=== PATIENT | male | born 1970 | race Hispanic/Latino ===

== ENCOUNTER 2019-08-09 | Emergency (ER) | payer OTHER ==
--- NOTE | 2019-08-09 20:32 | ER ---
Nurse's Notes [facility] Name: Treva Miguel Age: 48 yrs Sex: Male : 1970 Arrival Date: 08/09/2019 Time: 20:07 Bed 6 Private MD: Case Lanier T Diagnosis: Acute upper respiratory infection, unspecified Presentation: 08/08 20:10 Chief complaint: Patient states: having runny nose, little cough started 4 days ago rr5 (Monday). denies fever, denies SOB. 20:10 Coronavirus screen: The patient has NOT traveled to a country currently being monitored rr5 by the [facility] within the last 14 days. Proceed with normal triage procedures. Ebola Screen: Patient negative for fever greater than or equal to 101.5 degrees Fahrenheit, and additional compatible Ebola Virus Disease symptoms Patient denies exposure to infectious person. Patient denies travel to an Ebola-affected area in the 21 days before illness onset. Initial Sepsis Screen: Does the patient meet any 2 criteria? No. Patient's initial sepsis screen is negative. Does the patient have a suspected source of infection? No. Patient's initial sepsis screen is negative. Risk Assessment: Do you want to hurt yourself or someone else? Patient reports no desire to harm self or others. Onset of symptoms was August 05, 2019. Care prior to arrival: Medication(s) given: nyt quil. 20:10 Method Of Arrival: Ambulatory rr5 20:10 Acuity: JAYSON 4 rr5 Historical: - Allergies: 20:21 Codeine; rr5 - Home Meds: 20:21 mirabegron oral oral [Active]; tamsulosin oral oral [Active]; rr5 - PMHx: 20:21 Asthma; urinary frequency; rr5 - Immunization history:: Adult Immunizations unknown. - Social history:: Smoking status: Patient reports the use of cigarette tobacco products, cigars, Patient uses street drugs, marijuana. Screenin:39 Abuse screen: Denies threats or abuse. Nutritional screening: No deficits noted. ea Tuberculosis screening: No symptoms or risk factors identified. Fall Risk None identified. Assessment: 20:20 General: Appears in no apparent distress. Behavior is calm, cooperative, appropriate ea for age. Pain: Denies pain. Neuro: Level of Consciousness is awake, alert, obeys commands, Oriented to person, place, time, situation. Cardiovascular: Patient's skin is warm and dry. Respiratory: Airway is patent Respiratory effort is even, unlabored, Respiratory pattern is regular, symmetrical. Derm: Skin is pink, warm \T\ dry. 20:40 Reassessment: Patient and/or family updated on plan of care and expected duration. Pain ea level reassessed. Patient is alert, oriented x 3, equal unlabored respirations, skin warm/dry/pink. Discharge instruction given to patient, verbalized the understanding of instruction. Pt left ED ambulatory accompanied by family. Pt tolerating well. Vital Signs: 20:10 BP 133 / 79; Pulse 84; Resp 19; Temp 97.8; Pulse Ox 100% ; Weight 81.65 kg; Height 5 rr5 ft. 7 in. (170.18 cm); Pain 0/10; 20:10 Body Mass Index 28.19 (81.65 kg, 170.18 cm) rr5 ED Course: 20:07 Patient arrived in ED. es 20:08 Case Lanier MD is Private Physician. es 20:10 Arm band placed on right wrist. rr5 20:19 Triage completed. rr5 20:20 Patient has correct armband on for positive identification. Bed in low position. Call ea light in reach. 20:27 Amol Malik MD is Attending Physician. [facility] 20:29 Yovany Rodriguez, RN is Primary Nurse. 4 20:32 Case Lanier MD is Referral Physician. [facility] 20:42 No provider procedures requiring assistance completed. IV discontinued, intact, ea bleeding controlled, No redness/swelling at site. Pressure dressing applied. Administered Medications: No medications were administered Outcome: 20:32 Discharge ordered by . gautam 20:41 Discharged to home ambulatory. ea 20:41 Condition: stable 20:41 Discharge instructions given to patient, Instructed on discharge instructions, follow up and referral plans. medication usage, Demonstrated understanding of instructions, follow-up care, medications, Prescriptions given X 1. 20:42 Patient left the ED. ea Signatures: Amol Malik MD MD cha Salyer, Edna es Bryson, James, RN RN [id number] Luz Maria Pradhan RN RN ea Jass Cervantes RN RN rr5 Corrections: (The following items were deleted from the chart) 20:22 20:21 Social history: Smoking status: Patient reports the use of cigarette tobacco rr5 products, cigars, Patient/guardian denies using alcohol, street drugs, rr5
--- NOTE | 2019-08-09 20:33 | EDPHYS ---
Physician Documentation [facility] Name: Treva Miguel Age: 48 yrs Sex: Male : 1970 Arrival Date: 08/09/2019 Time: 20:07 Bed 6 Private MD: Case Lanier T ED Physician Amol Malik HPI: 08/08 20:30 This 48 yrs old Male presents to ER via Ambulatory with complaints of Runny gautam Nose. 20:30 The patient or guardian reports cough, described as mild. Onset: The symptoms/episode gautam began/occurred 2 day(s) ago. Severity of symptoms: At their worst the symptoms were mild, in the emergency department the symptoms are unchanged. Modifying factors: The symptoms are alleviated by nothing, the symptoms are aggravated by nothing. Associated signs and symptoms: The patient has no apparent associated signs or symptoms. The patient has not experienced similar symptoms in the past. Historical: - Allergies: 20:21 Codeine; rr5 - Home Meds: 20:21 mirabegron oral oral [Active]; tamsulosin oral oral [Active]; rr5 - PMHx: 20:21 Asthma; urinary frequency; rr5 - Immunization history:: Adult Immunizations unknown. - Social history:: Smoking status: Patient reports the use of cigarette tobacco products, cigars, Patient uses street drugs, marijuana. ROS: 20:30 Constitutional: Negative for fever, chills, and weight loss, Eyes: Negative for injury, gautam pain, redness, and discharge, Neck: Negative for injury, pain, and swelling, Cardiovascular: Negative for chest pain, palpitations, and edema, Respiratory: Negative for shortness of breath, cough, wheezing, and pleuritic chest pain, Abdomen/GI: Negative for abdominal pain, nausea, vomiting, diarrhea, and constipation, Back: Negative for injury and pain, : Negative for injury, bleeding, discharge, and swelling, MS/Extremity: Negative for injury and deformity, Skin: Negative for injury, rash, and discoloration, Neuro: Negative for headache, weakness, numbness, tingling, and seizure. 20:30 ENT: Positive for pulling at ears. Exam: 20:30 Constitutional: This is a well developed, well nourished patient who is awake, alert, gautam and in no acute distress. Head/Face: Normocephalic, atraumatic. Eyes: Pupils equal round and reactive to light, extra-ocular motions intact. Lids and lashes normal. Conjunctiva and sclera are non-icteric and not injected. Cornea within normal limits. Periorbital areas with no swelling, redness, or edema. ENT: Nares patent. No nasal discharge, no septal abnormalities noted. Tympanic membranes are normal and external auditory canals are clear. Oropharynx with no redness, swelling, or masses, exudates, or evidence of obstruction, uvula midline. Mucous membranes moist. Neck: Trachea midline, no thyromegaly or masses palpated, and no cervical lymphadenopathy. Supple, full range of motion without nuchal rigidity, or vertebral point tenderness. No Meningismus. Chest/axilla: Normal chest wall appearance and motion. Nontender with no deformity. No lesions are appreciated. Cardiovascular: Regular rate and rhythm with a normal S1 and S2. No gallops, murmurs, or rubs. Normal PMI, no JVD. No pulse deficits. Respiratory: Lungs have equal breath sounds bilaterally, clear to auscultation and percussion. No rales, rhonchi or wheezes noted. No increased work of breathing, no retractions or nasal flaring. Abdomen/GI: Soft, non-tender, with normal bowel sounds. No distension or tympany. No guarding or rebound. No evidence of tenderness throughout. Back: No spinal tenderness. No costovertebral tenderness. Full range of motion. Male : Normal genitalia with no discharge or lesions. Skin: Warm, dry with normal turgor. Normal color with no rashes, no lesions, and no evidence of cellulitis. MS/ Extremity: Pulses equal, no cyanosis. Neurovascular intact. Full, normal range of motion. Neuro: Awake and alert, GCS 15, oriented to person, place, time, and situation. Cranial nerves II-XII grossly intact. Motor strength 5/5 in all extremities. Sensory grossly intact. Cerebellar exam normal. Normal gait. Psych: Awake, alert, with orientation to person, place and time. Behavior, mood, and affect are within normal limits. Vital Signs: 20:10 BP 133 / 79; Pulse 84; Resp 19; Temp 97.8; Pulse Ox 100% ; Weight 81.65 kg; Height 5 rr5 ft. 7 in. (170.18 cm); Pain 0/10; 20:10 Body Mass Index 28.19 (81.65 kg, 170.18 cm) rr5 MDM: 20:28 Patient medically screened. gautam Administered Medications: No medications were administered Disposition: 08/09/19 20:32 Discharged to Home. Impression: Acute upper respiratory infection, unspecified. - Condition is Stable. - Discharge Instructions: Upper Respiratory Infection, Adult, Cool Mist Vaporizer, Cough, Adult. - Prescriptions for Zithromax Z- Antonio 250 mg Oral Tablet - take 1 tablet by ORAL route as directed for 5 days Day 1 - take two (2) tablets one time. Day 2, 3, 4 , 5 take one (1) tablet once daily.; 6 tablet. - Medication Reconciliation Form, Thank You Letter, Antibiotic Education, Prescription Opioid Use, Work release form form. - Follow up: Case Lanier MD; When: 2 - 3 days; Reason: Recheck today's complaints, Continuance of care, Re-evaluation by your physician. - Problem is new. - Symptoms have improved. Signatures: Amol Malik MD MD cha Antunez, Elena, RN RN Jass Ridley, RN RN rr5 Corrections: (The following items were deleted from the chart) 20:22 20:21 Social history: Smoking status: Patient reports the use of cigarette tobacco rr5 products, cigars, Patient/guardian denies using alcohol, street drugs, rr5 20:42 20:32 08/09/2019 20:32 Discharged to Home. Impression: Acute upper respiratory ea infection, unspecified. Condition is Stable. Forms are Medication Reconciliation Form, Thank You Letter, Antibiotic Education, Prescription Opioid Use. Follow up: Case Lanier; When: 2 - 3 days; Reason: Recheck today's complaints, Continuance of care, Re-evaluation by your physician. Problem is new. Symptoms have improved. gautam
== END 2019-08-09 20:42 | disposition home or self-care (01) ==
CPT/HCPCS: 99282

== ENCOUNTER → 2023-07-10 | Emergency (ER) | payer OTHER ==
[~2023-07-10] MED LIST: FIDAXOMICIN 200 MG TABLET PO ONE; KETOROLAC 30 MG/ML INJ ONE; NA CHLORIDE 0.9% 1,000 ML ONE
[2023-07-10 12:37] LABS: Specific Gravity < 1.005 (1.005-1.030); Urine Bacteria <20 /HPF (<20); Urine Bilirubin NEGATIVE (Negative); Urine Blood Negative (Negative); Urine Clarity Clear (Clear); Urine Color Colorless (Yellow); Urine Glucose NEGATIVE (Negative); Urine Protein NEGATIVE (Negative); Urine RBC <5 /HPF (None Seen); Urine Urobilinogen Normal (Normal); Urine pH 6.5 (5.0-7.0)
[2023-07-10 12:40] LABS: Absolute Lymphocytes (CBC) 2.1 K/uL (0.7-4.9); Hematocrit 40.7 % (39.6-49.0); Lymphocytes % 17.6 % (15.3-44.8); MCV 87.4 fL (80-100); MPV 8.5 fL (7.6-11.3); Platelets 341 thou/uL (152-406); RBC Red Blood Cell Count 4.65 M/uL (4.33-5.43)
[2023-07-10 12:41] LABS: Protime INR 1.22
[2023-07-10 12:55] LABS: Albumin 3.3 g/dL (3.4-5.0); Bilirubin Direct 0.1 mg/dL (0-0.2); Bilirubin Indirect, Calculated 0.3 mg/dL (0.2-0.8); Bilirubin Total 0.4 mg/dL (0.2-1.0); Magnesium 2.2 mg/dL (1.6-2.4); Potassium 3.4 mEq/L (3.5-5.1); Protein, Total 7.6 g/dL (6.4-8.2); Troponin High Sensitivity 5.5 pg/mL (<58.9)
[2023-07-10 13:32] LABS: C.diff Antigen/Toxin Ag pos : Tox pos (NEG : NEG)
--- NOTE | 2023-07-10 13:57 | RAD REPORT ---
EXAM DESCRIPTION: Kaity Single View07/10/2023 1:41 pm CLINICAL HISTORY: CHEST PAIN COMPARISON: Chest Pa And Lat (2 Views) dated 09/01/2015 TECHNIQUE: Portable AP view of the chest. FINDINGS: The lungs are clear. No pneumothorax or effusion. The cardiomediastinal contours are unre markable. IMPRESSION: No acute cardiopulmonary process.
[2023-07-10 14:56] LABS: SARS-CoV-2 Antigen Rapid Res Negative (Negative)
--- NOTE | 2023-07-10 15:23 | RAD REPORT ---
EXAM DESCRIPTION: CT - Abdomen Pelvis W Contrast - 07/10/2023 1:58 pm CLINICAL HISTORY: diarrhea COMPARISON: No comparisons TECHNIQUE: Thin cut axial CT imaging of the abdomen and pelvis was performed following intravenous a dministration of 100 mL Isovue 300. Multiplanar reformats were generated and reviewed. All CT scans are performed using dose optimization technique as appropriate and may include automated exposure control or mA/KV adjustment according to patient size. FINDINGS: No suspicious findings in the lung bases. The liver, spleen, adrenal glands, and pancreas show no suspicious findings. Gallbladder and biliary tree are also without suspicious finding. Symmetric renal function is seen with no hydronephrosis or suspicious renal mass. Subcentimeter bilat eral cortical fluid density lesions, not well characterized, but suggestive of small cysts. No dilated bowel loops. Long segment bowel wall thickening involving the distal descending, sigmoid c olon, and rectum, and to lesser extent the proximal ascending colon. Appendix is unremarkable. No flora e air, free fluid, abnormal fluid collections, or inflammatory stranding. No hernia, mass or bulky ly mphadenopathy. The urinary bladder is without significant finding. No suspicious bony findings. IMPRESSION: Segmental wall thickening along the proximal and distal colon as above, suggestive of in fectious or inflammatory colitis.
--- NOTE | 2023-07-10 15:46 | ER ---
Nurse's Notes [facility] Name: Treva Miguel Age: 52 yrs Sex: Male : 1970 Arrival Date: 07/10/2023 Time: 11:55 Bed 15 Private MD: Diagnosis: Enterocolitis due to Clostridium difficile;Diarrhea, unspecified Presentation: 07/10 12:10 Chief complaint: Patient states: Diarrhea for 1 week. Coronavirus screen: Client denies ll1 travel out of the [place] in the last 14 days. At this time, the client does not indicate any symptoms associated with coronavirus-19. Ebola Screen: Patient denies travel to an Ebola-affected area in the 21 days before illness onset. Initial Sepsis Screen: Does the patient meet any 2 criteria? No. Patient's initial sepsis screen is negative. Does the patient have a suspected source of infection? Yes: Acute abdominal pain. Risk Assessment: Do you want to hurt yourself or someone else? Patient reports no desire to harm self or others. Onset of symptoms was July 04, 2023. 12:10 Method Of Arrival: Ambulatory ll1 12:10 Acuity: JAYSON 2 ll1 Historical: - Allergies: 12:11 Codeine; ll1 - PMHx: 12:11 Asthma; Urinary Frequency; ll1 - Immunization history:: Adult Immunizations up to date. - Social history:: Smoking status: Patient/guardian denies using tobacco, Stopped _ months ago .5. Screenin:47 [facility] ED Fall Risk Assessment (Adult) History of falling in the last 3 months, me1 including since admission No falls in past 3 months (0 pts) Confusion or Disorientation No (0 pts) Intoxicated or Sedated No (0 pts) Impaired Gait No (0 pts) Mobility Assist Device Used No (0 pt) Altered Elimination No (0 pt) Score/Fall Risk Level 0 - 2 = Low Risk Maintained a safe environment, Provided non-skid footwear, Hourly rounding (assess needs \T\ fall precautionary measures) done. Abuse screen: Denies threats or abuse. Nutritional screening: No deficits noted. Tuberculosis screening: No symptoms or risk factors identified. Assessment: 12:47 General: Appears ill, well groomed, well developed, well nourished, Behavior is calm, me1 cooperative, appropriate for age, Reports feeling ill for > 3 days, dfiarrhea x 1 week. c/o weakness, dizziness at times. Denies n/v. States appetite is decreasing the past couple of days. Pain: Denies pain. Neuro: Level of Consciousness is awake, alert, obeys commands, Oriented to person, place, time, situation, Appropriate for age. Cardiovascular: Capillary refill < 3 seconds Patient's skin is warm and dry. Respiratory: Airway is patent Respiratory effort is even, unlabored, Respiratory pattern is regular, symmetrical. GI: Abdomen is non-distended, Reports diarrhea, since one week ago. Patient currently denies nausea, vomiting. Vital Signs: 12:10 BP 126 / 101; Pulse 118; Resp 18; Temp 98.4; Pulse Ox 98% on R/A; Weight 75.3 kg; ll1 Height 5 ft. 7 in. ; Pain 3/10; 12:33 BP 122 / 77; Pulse 88; Resp 16; Pulse Ox 100% on R/A; me1 13:30 BP 101 / 88; Pulse 79; Resp 19; Pulse Ox 100% on R/A; me1 14:00 BP 131 / 94; Pulse 77; Resp 22; Pulse Ox 100% on R/A; me1 15:14 BP 139 / 90; Pulse 74; Resp 16; Pulse Ox 100% on R/A; me1 16:04 BP 151 / 99; Pulse 69; Resp 16; Pulse Ox 100% on R/A; me1 16:37 BP 137 / 90; Pulse 67; Resp 16; Pulse Ox 100% on R/A; me1 12:10 Body Mass Index 26.00 (75.30 kg, 170.18 cm) ll1 12:10 Pain Scale: Adult ll1 ED Course: 11:57 Patient arrived in ED. rg4 12:00 Amol Lange PA is PHCP. cp 12:01 Amol Malik MD is Attending Physician. cp 12:11 Triage completed. ll1 12:13 Arm band placed on. ll1 12:15 Jessika Ambrose, CASSANDRA is Primary Nurse. me1 12:18 Patient placed in an exam room, on a stretcher. ll1 12:32 Inserted saline lock: 20 gauge in right antecubital area, using aseptic technique. me1 12:33 Basic Metabolic Panel Sent. me1 12:33 CBC with Diff Sent. me1 12:33 LFT's Sent. me1 12:33 Magnesium Sent. me1 12:33 NT PRO-BNP Sent. me1 12:33 PT-INR Sent. me1 12:33 Troponin HS Sent. me1 12:47 Patient has correct armband on for positive identification. Bed in low position. Call me1 light in reach. Side rails up X2. Provided Education on: POC. Verbalized understanding. . 12:47 No provider procedures requiring assistance completed. me1 13:03 Ova And Parasites Sent. me1 13:03 Rotavirus Antigen Sent. me1 13:03 Stool Culture Sent. me1 13:32 Notified Nurse Practitioner and/or Physician [place] of a critical lab result(s), C ll1 diff + Notified primary nurse of C Diff +. 13:43 XRAY Chest (1 view) In Process Unspecified. EDMS 13:59 CT Abd/Pelvis - IV Contrast Only In Process Unspecified. EDMS 14:36 SARS RAPID Sent. me1 16:38 IV discontinued, intact, bleeding controlled, No redness/swelling at site. Pressure me1 dressing applied. Administered Medications: 12:33 Drug: NS 0.9% IV 1000 ml IV at 1 bolus Per protocol; 1000 mL bolus Route: IV; Rate: 1 me1 bolus; Site: right antecubital; 13:53 Follow up: IV Status: Completed infusion me1 14:36 Drug: Ketorolac IVP 15 mg IVP once Route: IVP; Site: right antecubital; me1 15:27 Follow up: Response: No adverse reaction; Pain is decreased me1 15:31 Drug: NS 0.9% IV 1000 ml IV at 1 bolus Per protocol; 1000 mL bolus Route: IV; Rate: 1 me1 bolus; Site: right antecubital; 16:39 Follow up: IV Status: Completed infusion me1 15:50 Drug: fidaxomicin 200 mg PO once Route: PO; me1 16:03 Follow up: Response: No adverse reaction me1 Medication: 12:47 VIS not applicable for this client. me1 Outcome: 15:45 Discharge ordered by . cp 16:38 Discharged to home ambulatory, with family, me1 16:38 Condition: stable 16:38 Discharge instructions given to patient, Instructed on discharge instructions, follow up and referral plans. medication usage, Demonstrated understanding of instructions, follow-up care, medications, Prescriptions given X 2, 16:40 Patient left the ED. me1 Signatures: Dispatcher [employer] EDAmol Raza PA PA cp Garcia, Rubi rg4 Ruba Diallo, RN RN ll1 Jessika Ambrose RN RN me1 Corrections: (The following items were deleted from the chart) 12:12 12:10 BP 126 / 101; Pulse 131bpm; Resp 18bpm; Pulse Ox 98% RA; Pain 07/29, Adult; ll1 ll1 12:13 12:10 Acuity: JAYSON 3 ll1 ll1
--- NOTE | 2023-07-10 15:46 | EDPHYS ---
Physician Documentation [facility] Name: Treva Miguel Age: 52 yrs Sex: Male : 1970 Arrival Date: 07/10/2023 Time: 11:55 Bed 15 Private MD: ED Physician Amol Malik HPI: 07/10 12:20 This 52 yrs old Male presents to ER via Ambulatory with complaints of Diarrhea.cp 12:20 The patient presents to the emergency department with diarrhea, that is continuous. cp 12:20 Onset: The symptoms/episode began/occurred 1 week(s) ago. cp 12:20 Possible causes: antibiotics, Cipro and Metronidazole taken about 1 month ago. cp Associated signs and symptoms: Pertinent negatives: constipation, fever, GI bleeding, vomiting. 12:20 Severity of symptoms: in the emergency department the symptoms are unchanged despite cp home interventions. Historical: - Allergies: 12:11 Codeine; ll1 - PMHx: 12:11 Asthma; Urinary Frequency; ll1 - Immunization history:: Adult Immunizations up to date. - Social history:: Smoking status: Patient/guardian denies using tobacco, Stopped _ months ago .5. ROS: 12:25 Constitutional: Negative for body aches, chills, fever, poor PO intake, cp 12:25 Eyes: Negative for injury, pain, redness, and discharge, cp 12:25 ENT: Negative for drainage from ear(s), ear pain, sore throat, difficulty swallowing, difficulty handling secretions, 12:25 Cardiovascular: Negative for chest pain, edema, palpitations, 12:25 Respiratory: Negative for cough, shortness of breath, wheezing, 12:25 Abdomen/GI: Positive for abdominal pain, diarrhea, Negative for vomiting, constipation, black/tarry stool, rectal bleeding, 12:25 Back: Negative for pain at rest, pain with movement, 12:25 : Negative for urinary symptoms, testicular pain 12:25 Neuro: Negative for altered mental status, dizziness, headache, syncope, weakness, 12:25 All other systems are negative, Exam: 12:30 Head/Face: Normocephalic, atraumatic. cp 12:30 Constitutional: The patient appears in no acute distress, alert, awake, non-diaphoretic, non-toxic, well developed, well nourished, 12:30 Eyes: Periorbital structures: appear normal, Conjunctiva: normal, no exudate, no injection, Sclera: no appreciated abnormality, Lids and lashes: appear normal, bilaterally, 12:30 ENT: External ear(s): are unremarkable, Nose: is normal, Mouth: Lips: moist, Oral mucosa: pink and intact, moist, Posterior pharynx: Airway: no evidence of obstruction, patent, 12:30 Chest/axilla: Inspection: normal, 12:30 Cardiovascular: Rate: tachycardic, Rhythm: regular, Edema: is not appreciated, JVD: is not appreciated, 12:30 Respiratory: the patient does not display signs of respiratory distress, Respirations: normal, no use of accessory muscles, no retractions, labored breathing, is not present, Breath sounds: are clear throughout, no decreased breath sounds, no stridor, no wheezing, 12:30 Abdomen/GI: Inspection: abdomen appears normal, Bowel sounds: active, all quadrants, Palpation: soft, in all quadrants, mild abdominal tenderness, in all quadrants, rebound tenderness, is not appreciated, involuntary guarding, is not appreciated, 12:30 Back: pain, is absent, ROM is normal, 18:22 ECG was reviewed by the Attending Physician. cp Vital Signs: 12:10 BP 126 / 101; Pulse 118; Resp 18; Temp 98.4; Pulse Ox 98% on R/A; Weight 75.3 kg; ll1 Height 5 ft. 7 in. ; Pain 3/10; 12:33 BP 122 / 77; Pulse 88; Resp 16; Pulse Ox 100% on R/A; me1 13:30 BP 101 / 88; Pulse 79; Resp 19; Pulse Ox 100% on R/A; me1 14:00 BP 131 / 94; Pulse 77; Resp 22; Pulse Ox 100% on R/A; me1 15:14 BP 139 / 90; Pulse 74; Resp 16; Pulse Ox 100% on R/A; me1 16:04 BP 151 / 99; Pulse 69; Resp 16; Pulse Ox 100% on R/A; me1 16:37 BP 137 / 90; Pulse 67; Resp 16; Pulse Ox 100% on R/A; me1 12:10 Body Mass Index 26.00 (75.30 kg, 170.18 cm) [facility] [place] 12:10 Pain Scale: Adult ll1 MDM: 12:09 Patient medically screened. cp 14:00 Differential diagnosis: gastritis, cholecystitis, pancreatitis, diverticulitis, viral cp gastroenteritis, gastroenteritis, colitis. 15:45 Data reviewed: vital signs, nurses notes, lab test result(s), radiologic studies, CT cp scan. 15:45 I considered the following discharge prescriptions or medication management in the emergency department Medications were administered in the Emergency Department. See MAR. Counseling: I had a detailed discussion with the patient and/or guardian regarding the historical points, exam findings, and any diagnostic results supporting the discharge/admit diagnosis, lab results, radiology results, the need for outpatient follow up, a family practitioner, to return to the emergency department if symptoms worsen or persist or if there are any questions or concerns that arise at home. Response to treatment: the patient's symptoms have markedly improved after treatment, and as a result, I will discharge patient. Special discussion: Based on the patient's Hx, exam, and Dx evaluation, there is no indication for emergent surgery or inpatient Tx. It is understood by the patient/guardian that if the Sx's persist or worsen they need to return immediately for re-evaluation. ED course: VSS. Patient appears non-toxic and is tolerating po fluids and meds. Will discharge to home for continued monitoring. 07/10 12:14 Order name: Basic Metabolic Panel; Complete Time: 13:45 cp 07/10 13:46 Interpretation: Normal except: K 3.4; GLUC 124. 07/10 12:14 Order name: CBC with Diff; Complete Time: 13:45 07/10 13:46 Interpretation: Normal except: WBC 12.10; MN% 13.7; NEUT A 8.2; MNA 1.7. 07/10 12:14 Order name: LFT's; Complete Time: 13:45 cp 07/10 13:46 Interpretation: Reviewed. 07/10 12:14 Order name: Magnesium; Complete Time: 13:45 cp 07/10 12:14 Order name: NT PRO-BNP; Complete Time: 13:45 cp 07/10 12:14 Order name: PT-INR; Complete Time: 13:45 cp 07/10 12:14 Order name: Troponin HS; Complete Time: 13:45 cp 07/10 12:14 Order name: Lipase; Complete Time: 13:45 cp 07/10 12:14 Order name: Urinalysis W/Microscopic; Complete Time: 13:45 cp 07/10 12:14 Order name: Ova And Parasites cp 07/10 12:14 Order name: Rotavirus Antigen; Complete Time: 13:45 cp 07/10 12:14 Order name: Stool Culture cp 07/10 12:14 Order name: CDIFF; Complete Time: 13:45 cp 07/10 13:46 Interpretation: Reviewed. cp 07/10 14:21 Order name: SARS RAPID; Complete Time: 15:26 cp 07/10 12:14 Order name: XRAY Chest (1 view); Complete Time: 14:20 cp 07/10 13:47 Order name: CT Abd/Pelvis - IV Contrast Only; Complete Time: 15:26 cp 07/10 15:26 Interpretation: Report reviewed. cp 07/10 12:14 Order name: EKG; Complete Time: 12:15 cp 07/10 12:14 Order name: Cardiac monitoring; Complete Time: 12:45 cp 07/10 12:14 Order name: EKG - Nurse/Tech; Complete Time: 12:45 cp 07/10 12:14 Order name: IV Saline Lock; Complete Time: 12:33 cp 07/10 12:14 Order name: Labs collected and sent; Complete Time: 12:33 cp 07/10 12:14 Order name: O2 Per Protocol; Complete Time: 12:33 cp 07/10 12:14 Order name: O2 Sat Monitoring; Complete Time: 12:33 cp EC:22 Rate is 78 beats/min. Rhythm is regular. UT interval is shortened at 108 msec. QRS cp interval is normal. QT interval is normal. Interpreted by me. Reviewed by me. Administered Medications: 12:33 Drug: NS 0.9% IV 1000 ml IV at 1 bolus Per protocol; 1000 mL bolus Route: IV; Rate: 1 me1 bolus; Site: right antecubital; 13:53 Follow up: IV Status: Completed infusion me1 14:36 Drug: Ketorolac IVP 15 mg IVP once Route: IVP; Site: right antecubital; me1 15:27 Follow up: Response: No adverse reaction; Pain is decreased me1 15:31 Drug: NS 0.9% IV 1000 ml IV at 1 bolus Per protocol; 1000 mL bolus Route: IV; Rate: 1 me1 bolus; Site: right antecubital; 16:39 Follow up: IV Status: Completed infusion me1 15:50 Drug: fidaxomicin 200 mg PO once Route: PO; me1 16:03 Follow up: Response: No adverse reaction me1 Disposition Summary: 07/10/23 15:45 Discharge Ordered Notes: Location: Home cp Problem: new cp Symptoms: have improved cp Condition: Stable cp Diagnosis - Enterocolitis due to Clostridium difficile cp - Diarrhea, unspecified cp Followup: cp - With: Private Physician - When: 2 - 3 days - Reason: Recheck today's complaints Discharge Instructions: - Discharge Summary Sheet cp - Food Choices to Help Relieve Diarrhea, Adult cp - Diarrhea, Adult cp - Clostridioides Difficile Infection cp Forms: - Medication Reconciliation Form cp - Thank You Letter cp - Antibiotic Education cp - Prescription Opioid Use cp - Patient Portal Instructions cp - Leadership Thank You Letter cp Prescriptions: - fidaxomicin 200 mg Oral tablet - take 1 tablet ORAL route every 12 hours for 10 days; 20 tablet; Refills: 0, cp Product Selection Permitted - Zofran 4 mg Oral Tablet - take 1 tablet ORAL route every 12 hours As needed; 20 tablet; Refills: 0, cp Product Selection Permitted Signatures: Dispatcher [employer] EDMS Jakob Delatorre, MONICO-Leesa CAR WRECKER-Cla1 Amol Lange PA PA cp Ruba Diallo RN RN 1 Jessika Ambrose RN RN me1 Corrections: (The following items were deleted from the chart) :07/09 12:30 Constitutional: The patient appears in no acute distress, alert, awake, cp non-diaphoretic, non-toxic, well developed, well nourished, cp 07/10 15:34 07/09 12:30 Head/Face: Normocephalic, atraumatic. cp cp 07/10 15:34 07/09 12:30 Eyes: Periorbital structures: appear normal, Conjunctiva: normal, no cp exudate, no injection, Sclera: no appreciated abnormality, Lids and lashes: appear normal, bilaterally, cp 07/10 15:34 07/09 12:30 ENT: External ear(s): are unremarkable, Nose: is normal, Mouth: Lips: cp moist, Oral mucosa: pink and intact, moist, Posterior pharynx: Airway: no evidence of obstruction, patent, cp 07/10 15:07/09 12:30 Chest/axilla: Inspection: normal, cp cp 07/10 15:07/09 12:30 Cardiovascular: Rate: tachycardic, Rhythm: regular, Edema: is not cp appreciated, JVD: is not appreciated, cp 07/10 15:07/09 12:30 Respiratory: the patient does not display signs of respiratory distress, cp Respirations: normal, no use of accessory muscles, no retractions, labored breathing, is not present, Breath sounds: are clear throughout, no decreased breath sounds, no stridor, no wheezing, cp 07/10 15:07/09 12:30 Abdomen/GI: Inspection: abdomen appears normal, Bowel sounds: active, all cp quadrants, Palpation: soft, in all quadrants, mild abdominal tenderness, in all quadrants, rebound tenderness, is not appreciated, involuntary guarding, is not appreciated, cp 07/10 15:07/09 12:30 Back: pain, is absent, ROM is normal, cp cp
[2023-07-10 17:24] VITALS: BP 137/90; TEMP 98.4; O2SAT 100
== END ==
LOC: ER 11:55
DX: A04.72 Enterocolitis due to Clostridium difficile, not specified as recurrent (principal); Z11.52 Encounter for screening for COVID-19; Z88.5 Allergy status to narcotic agent
CPT/HCPCS: 87045; 85025; 81001; 80048; 36415; 83735; 87177; 85610; 80076; 87046; 87209; 87324; 84484; 83690; 83880; 87425; 74177; 71045; 87811; Q9967; J8499; J7030 ×2; 93005

== ENCOUNTER → 2023-07-14 | Emergency (ER) | payer OTHER ==
[~2023-07-14] MED LIST changes: -FIDAXOMICIN 200 MG TABLET PO ONE; -NA CHLORIDE 0.9% 1,000 ML ONE
[2023-07-14 12:17] LABS: Absolute Lymphocytes (CBC) 2.5 K/uL (0.7-4.9); Hematocrit 37.2 % (39.6-49.0); Lymphocytes % 24.4 % (15.3-44.8); MCV 88.2 fL (80-100); MPV 8.2 fL (7.6-11.3); Platelets 341 thou/uL (152-406); RBC Red Blood Cell Count 4.22 M/uL (4.33-5.43)
[2023-07-14 12:40] LABS: Potassium 4.2 mEq/L (3.5-5.1); Troponin High Sensitivity 4.5 pg/mL (<58.9)
--- NOTE | 2023-07-14 12:40 | RAD REPORT ---
EXAM DESCRIPTION: CT - Chest For Pe Angio - 07/14/2023 12:30 pm CLINICAL HISTORY: Chest pain. CHEST PAIN COMPARISON: No comparisons TECHNIQUE: CT angiogram of the pulmonary arteries was performed with MIP. All CT scans are performed using dose optimization technique as appropriate and may include automated exposure control or mA/KV adjustment according to patient size. FINDINGS: No evidence of pulmonary thromboembolism. No acute aortic finding demonstrated. The lungs are clear. No significant pericardial or pleural fluid. No concerning bony finding. IMPRESSION: No evidence of pulmonary thromboembolism. No acute lung findings.
--- NOTE | 2023-07-14 12:42 | RAD REPORT ---
EXAM DESCRIPTION: RAD - Chest Single View - 07/14/2023 12:36 pm CLINICAL HISTORY: CHEST PAIN Chest pain. COMPARISON: Chest Single View dated 07/10/2023; Chest Pa And Lat (2 Views) dated 09/01/2015 FINDINGS: Portable technique limits examination quality. The lungs are grossly clear. The heart is normal in size. No displaced fractures. IMPRESSION: No acute intrathoracic process suspected.
--- NOTE | 2023-07-14 13:33 | ER ---
Nurse's Notes [facility] Name: Treva Miugel Age: 52 yrs Sex: Male : 1970 Arrival Date: 07/14/2023 Time: 11:31 Bed 8 Private MD: Case Lanier T Diagnosis: Chest pain, unspecified Presentation: 07/14 11:43 Chief complaint: Patient states: L trunk pain with deep breathing has increased since ll1 visit here last week. All other symptoms are getting better. Coronavirus screen: Client denies travel out of the [place] in the last 14 days. cough unrelated to allergies. Ebola Screen: Patient denies travel to an Ebola-affected area in the 21 days before illness onset. Initial Sepsis Screen: Does the patient meet any 2 criteria? No. Patient's initial sepsis screen is negative. Does the patient have a suspected source of infection? Yes: Productive cough/pneumonia. Risk Assessment: Do you want to hurt yourself or someone else? Patient reports no desire to harm self or others. Onset of symptoms was July 07, 2023. 11:43 Method Of Arrival: Ambulatory ll1 11:43 Acuity: JAYSON 4 ll1 Triage Assessment: 11:45 General: Appears in no apparent distress. Behavior is calm, cooperative, appropriate ll1 for age. Pain: Complains of pain in L trunk Pain currently is 8 out of 10 on a pain scale. Quality of pain is described as aching, Aggravated by deep breathing. Respiratory: Reports pain with cough pain with respiration. Historical: - Allergies: 11:42 Codeine; ll1 - PMHx: 11:42 Asthma; Urinary Frequency; ll1 - Immunization history:: Adult Immunizations up to date. - Social history:: Smoking status: Patient/guardian denies using tobacco, Stopped _ months ago .5. - Family history:: not pertinent. - Hospitalizations: : No recent hospitalization is reported. Screenin:13 [facility] ED Fall Risk Assessment (Adult) History of falling in the last 3 months, ld1 including since admission No falls in past 3 months (0 pts). Abuse screen: Denies threats or abuse. Denies injuries from another. Nutritional screening: No deficits noted. Tuberculosis screening: No symptoms or risk factors identified. Assessment: 12:13 General: Appears in no apparent distress. comfortable, Behavior is cooperative, ld1 anxious. Pain: Complains of pain in anterior aspect of left lateral abdomen Pain does not radiate. Pain currently is 8 out of 10 on a pain scale. Quality of pain is described as sharp, shooting, throbbing, Pain began 2-3 days ago. Is continuous. Neuro: Level of Consciousness is awake, alert, obeys commands, Oriented to person, place, time, situation. Cardiovascular: Capillary refill < 3 seconds Patient's skin is warm and dry. Respiratory: Airway is patent Respiratory effort is even, unlabored. GI: Abdomen is flat, non-distended. : No signs and/or symptoms were reported regarding the genitourinary system. EENT: No signs and/or symptoms were reported regarding the EENT system. Derm: No signs and/or symptoms reported regarding the dermatologic system. Musculoskeletal: No signs and/or symptoms reported regarding the musculoskeletal system. Vital Signs: 11:43 BP 133 / 91; Pulse 70; Resp 17; Temp 97.1; Pulse Ox 100% on R/A; Weight 74.84 kg; ll1 Height 5 ft. 7 in. ; Pain 8/10; 12:13 BP 130 / 80; Pulse 68; Resp 18; Pulse Ox 100% on R/A; Pain 8/10; ld1 12:50 BP 130 / 80; Pulse 86; Resp 18; Pulse Ox 100% on R/A; ld1 11:43 Body Mass Index 25.84 (74.84 kg, 170.18 cm) ll1 11:43 Pain Scale: Adult ll1 12:13 Pain Scale: Adult ld1 ED Course: 11:32 Patient arrived in ED. rg4 11:32 Case Lanier MD is Private Physician. rg4 11:40 Heladio Ochoa MD is Attending Physician. rn 11:42 Radha Ortega RN is Primary Nurse. ld1 11:42 Arm band placed on Patient placed in an exam room, on a stretcher. ll1 11:45 Triage completed. ll1 12:13 Patient has correct armband on for positive identification. Placed in gown. Bed in low ld1 position. Call light in reach. Side rails up X2. air sampling and monitoring on. Pulse ox on. NIBP on. Door closed. Noise minimized. Warm blanket given. 12:13 No provider procedures requiring assistance completed. Inserted saline lock: 20 gauge ld1 in right antecubital area, using aseptic technique. Blood collected. 12:32 CT Chest For PE Angio In Process Unspecified. EDMS 12:38 XRAY Chest (1 view) In Process Unspecified. EDMS 13:50 Provided Education on: new medication. ld1 13:50 IV discontinued, intact, bleeding controlled, No redness/swelling at site. ld1 Administered Medications: 13:49 Drug: Ketorolac IVP 30 mg IVP once Route: IVP; Site: right antecubital; ld1 Medication: 12:13 VIS not applicable for this client. ld1 Outcome: 13:33 Discharge ordered by . rn 13:50 Discharged to home ambulatory, ld1 13:50 Condition: stable 13:50 Discharge instructions given to patient, Instructed on discharge instructions, follow up and referral plans. medication usage, Demonstrated understanding of instructions, follow-up care, medications, Prescriptions given X 1, 13:50 Patient left the ED. ld1 Signatures: Dispatcher [employer] EDMS Heladio Ochoa MD MD rn Garcia, Rubi rg4 Ruba Diallo RN RN 1 Radha Ortega RN RN ld1
--- NOTE | 2023-07-14 13:33 | EDPHYS ---
Physician Documentation [facility] Name: Treva Miguel Age: 52 yrs Sex: Male : 1970 Arrival Date: 07/14/2023 Time: 11:31 Bed 8 Private MD: Case Lanier T ED Physician Heladio Ochoa HPI: 07/14 12:22 This 52 yrs old Male presents to ER via Ambulatory with complaints of Pain rn when Breathing. 12:22 The patient or guardian reports chest pain that is located primarily in the left rn lateral anterior chest. Onset: 1 week(s) ago. The pain does not radiate. Associated signs and symptoms: Pertinent negatives: abdominal pain, cough, palpitations, shortness of breath, syncope, vomiting. The chest pain is described as sharp, stabbing. Duration: The patient or guardian reports multiple episodes, that are intermittent. Modifying factors: The symptoms are alleviated by nothing. the symptoms are aggravated by deep breath. Severity of pain: At its worst the pain was moderate in the emergency department the pain is unchanged. The patient has not experienced similar symptoms in the past. Patient reports left lateral chest pain with deep inspiration. Has been going on for about a week. Seen here recently for C. difficile colitis. States chest pain was present at that time but not better so came for reevaluation. Reports abdominal pain and abdominal issues have resolved and feels much better. No history of DVT or PE. No trauma to the chest. Reports has been isolating and not ambulating as much as he normally does.. Historical: - Allergies: 11:42 Codeine; ll1 - PMHx: 11:42 Asthma; Urinary Frequency; ll1 - Immunization history:: Adult Immunizations up to date. - Social history:: Smoking status: Patient/guardian denies using tobacco, Stopped _ months ago .5. - Family history:: not pertinent. - Hospitalizations: : No recent hospitalization is reported. ROS: 12:22 Constitutional: Negative for fever, chills, and weight loss, Cardiovascular: Positive rn for left-sided chest pain Respiratory: Positive for pleuritic chest pain on the left side. Negative for shortness of breath Abdomen/GI: Negative for abdominal pain, nausea, vomiting, diarrhea, and constipation, Back: Negative for injury and pain, MS/Extremity: Negative for injury and deformity, Skin: Negative for injury, rash, and discoloration, Neuro: Negative for headache, weakness, numbness, tingling, and seizure, Exam: 12:22 Constitutional: This is a well developed, well nourished patient who is awake, alert, rn and in no acute distress. Head/Face: Normocephalic, atraumatic. Cardiovascular: Regular rate and rhythm. No pulse deficits. Respiratory: No increased work of breathing, no retractions or nasal flaring. Abdomen/GI: Soft, non-tender, with normal bowel sounds. No distension or tympany. No guarding or rebound. No evidence of tenderness throughout. 13:34 ECG was reviewed by the Attending Physician. rn Vital Signs: 11:43 BP 133 / 91; Pulse 70; Resp 17; Temp 97.1; Pulse Ox 100% on R/A; Weight 74.84 kg; ll1 Height 5 ft. 7 in. ; Pain 8/10; 12:13 BP 130 / 80; Pulse 68; Resp 18; Pulse Ox 100% on R/A; Pain 8/10; ld1 12:50 BP 130 / 80; Pulse 86; Resp 18; Pulse Ox 100% on R/A; ld1 11:43 Body Mass Index 25.84 (74.84 kg, 170.18 cm) ll1 11:43 Pain Scale: Adult ll1 12:13 Pain Scale: Adult ld1 MDM: 11:40 Patient medically screened. rn 13:31 Differential diagnosis: acute myocardial infarction, acute pericarditis, anxiety, chest rn wall pain, costochondritis, esophagitis, gastritis, gastroesophageal reflux disease (GERD), pleurisy, pneumonia, pneumothorax, pulmonary embolus. HEART Score: History: Slightly Suspicious (0), ECG: Normal (0), Age: < or = 45 years (0), Risk Factors: No Risk Factors Known (0), Troponin: < or = 1 x Normal Limit (0), Total Score = 0. Data reviewed: vital signs, nurses notes, lab test result(s), EKG, radiologic studies, CT scan, and as a result, I will discharge patient. Counseling: I had a detailed discussion with the patient and/or guardian regarding the historical points, exam findings, and any diagnostic results supporting the discharge/admit diagnosis, lab results, radiology results, the need for outpatient follow up, to return to the emergency department if symptoms worsen or persist or if there are any questions or concerns that arise at home. Special discussion: Based on the patient's history, exam, and Dx evaluation, there is no indication for emergent intervention or inpatient Tx. It is understood by the patient/guardian that if the Sx's persist or worsen they need to return immediately for re-evaluation. I discussed with the patient/guardian in detail that at this point there is no indication for admission to the hospital. It is understood, however, that if the symptoms persist or worsen the patient needs to return immediately for re-evaluation. ED course: CTPA negative. Troponin negative. Normal ECG. Will discharge home with return precautions. I have personally reviewed all of the results, including but not limited to blood tests and imaging deemed necessary to safely discharge this patient at this time. All results given to and printed out for patient. I personally went over all the results with the patient and answered all questions. Patient will follow-up with PCP and or specialist as discussed. Return precautions given and understood.. 07/14 11:56 Order name: Basic Metabolic Panel; Complete Time: 13:07/14 11:56 Order name: CBC with Diff; Complete Time: 13:07/14 11:56 Order name: NT PRO-BNP; Complete Time: 13:07/14 11:56 Order name: Troponin HS; Complete Time: 13:07/14 11:40 Order name: XRAY Chest (1 view); Complete Time: 13:07/14 11:56 Order name: CT Chest For PE Angio; Complete Time: 13:07/14 11:40 Order name: EKG; Complete Time: 11:41 07/14 11:40 Order name: EKG - Nurse/Tech; Complete Time: 12:07/14 11:56 Order name: Cardiac monitoring; Complete Time: 12:07/14 11:56 Order name: IV Saline Lock; Complete Time: 12:07/14 11:56 Order name: Labs collected and sent; Complete Time: 12:07/14 11:56 Order name: O2 Per Protocol; Complete Time: 12:07/14 11:56 Order name: O2 Sat Monitoring; Complete Time: 12: rn EC:34 Rate is 66 beats/min. Rhythm is regular. QRS [place] is Normal. OR interval is normal. QRS rn interval is normal. QT interval is normal. No Q waves. T waves are Normal. No ST changes noted. Clinical impression: Normal ECG. Interpreted by me. Reviewed by me. Administered Medications: 13:49 Drug: Ketorolac IVP 30 mg IVP once Route: IVP; Site: right antecubital; ld1 Disposition Summary: 07/14/23 13:33 Discharge Ordered Notes: Location: Home rn Problem: new rn Symptoms: have improved rn Condition: Stable rn Diagnosis - Chest pain, unspecified rn Followup: rn - With: Private Physician - When: As needed - Reason: Recheck today's complaints, Re-evaluation by your physician Discharge Instructions: - Discharge Summary Sheet rn - Nonspecific Chest Pain, Adult rn Forms: - Medication Reconciliation Form rn - Thank You Letter rn - Antibiotic rn supplemental - Prescription Opioid Use rn - Patient Portal Instructions rn - Leadership Thank You Letter rn - Work release form hb Prescriptions: - gabapentin 300 mg Oral capsule - take 1 capsule ORAL route every 12 hours As needed; 14 capsule; Refills: 0, rn Product Selection Permitted Signatures: Dispatcher [employer] EDHeladio Torres MD MD rn Ruba Diallo RN RN ll1 Radha Ortega RN RN ld1
[2023-07-14 14:17] VITALS: BP 130/80; TEMP 97.1; O2SAT 100
--- NOTE | 2023-07-17 14:39 | EKG ---
Test Date: 2023-07-14 Test Time: 12:02:55 Professional Engineer: Felipe DEL RIO MEASUREMENT RESULTS: Intervals: Rate: 66 SC: 112 QRSD: 78 QT: 396 QTc: 415 [place]: P: 77 SC: 112 QRS: 76 T: 53 INTERPRETIVE STATEMENTS: Normal sinus rhythm Normal ECG Compared to ECG 07/10/2023 12:41:21 Short SC interval no longer present Electronically Signed On 07-17-23 14:30:09 [employer]ER TUNNEL KILN by Daniel Cordon
== END ==
LOC: ER 11:31
DX: R07.89 Other chest pain (principal); Z88.5 Allergy status to narcotic agent
CPT/HCPCS: 93005; 85025; 80048; 36415; 84484; 83880; 71275; 71045; Q9967

== ENCOUNTER → 2023-08-10 | Emergency (ER) | payer OTHER ==
[~2023-08-10] MED LIST changes: +FAMOTIDINE 20 MG/2 ML VIAL IV ONE; -KETOROLAC 30 MG/ML INJ ONE; +METRONIDAZOLE 500mg IVPB 500 MG/100 ML BAG IV ONE; +MORPHINE 4 MG/ML SYR ONE; +NA CHLORIDE 0.9% 0 ML ONE; +NA CHLORIDE 0.9% 1,000 ML ONE; +ONDANSETRON 4 MG/2 ML VIAL ONE
[2023-08-10 09:45] LABS: Absolute Eosinophils 0.2 K/uL (0-0.5); Absolute Lymphocytes (CBC) 1.8 K/uL (0.7-4.9); Absolute Monocytes 0.4 K/uL (0.1-1.3); Absolute Neutrophil 4.3 K/uL (1.8-8.0); Basophils % 0.7 % (0-1.3); Eosinophils % 3.5 % (0-4.4); Hematocrit 39.7 % (39.6-49.0); Hemoglobin 13.5 g/dL (13.6-17.9); Lymphocytes % 26.5 % (15.3-44.8); MCH 30.3 pg (27.0-35.0); MCHC 33.9 g/dL (32.0-36.0); MCV 89.3 fL (80-100); MPV 8.7 fL (7.6-11.3); Neutrophils % 63.3 % (41.7-73.7); Platelets 281 thou/uL (152-406); RBC Red Blood Cell Count 4.45 M/uL (4.33-5.43); Red Cell Distribution Width 15.5 % (12.1-15.2)
[2023-08-10 09:54] LABS: Sqamous Epithelial <5 /HPF (None Seen); Urine Bacteria None Seen /HPF (<20); Urine Bilirubin NEGATIVE (Negative); Urine Blood Trace (Negative); Urine Clarity Clear (Clear); Urine Color Yellow (Yellow); Urine Culture Reflex Order NOT NEEDED; Urine Glucose NEGATIVE (Negative); Urine Ketones NEGATIVE (Negative); Urine Microscopic Reflex YN ORDER UMIC; Urine Mucus Slight /HPF (None Seen); Urine Nitrite NEGATIVE (Negative); Urine Protein NEGATIVE (Negative); Urine RBC <5 /HPF (None Seen); Urine Urobilinogen Normal (Normal); Urine WBC <5 /HPF (<5); Urine pH 5.5 (5.0-7.0)
--- NOTE | 2023-08-10 10:02 | RAD REPORT ---
EXAM DESCRIPTION: CTAbdomen Pelvis W Contrast - 08/10/2023 9:48 am CLINICAL HISTORY: ABD PAIN COMPARISON: Abdomen Pelvis W Contrast dated 07/24/2023; Abdomen Pelvis W Contrast dated 07/10/2023 TECHNIQUE: CT of the abdomen and pelvis was performed. All CT scans are performed using dose optimization technique as appropriate and may include automated exposure control or mA/KV adjustment according to patient size. FINDINGS: Lower chest: Mild circumferential thickened distal esophagus which could reflect esophagit is. Liver: No acute abnormality or suspicious lesions. Biliary: No biliary ductal dilatation. Stomach: No significant focal abnormality. Duodenum: No significant focal abnormality. Pancreas: No significant abnormality. Spleen: No significant abnormality. Adrenal: No suspicious lesions. Kidney/ureter: No hydronephrosis. No renal calculi. Too small to characterize and/or benign appearing renal lesions are noted. Retroperitoneum: No retroperitoneal adenopathy. Vascular: No aneurysm. Bowel: Rectal wall thickening versus underdistention which is new from prior.. Normal appendix. Peritoneum: No ascites or free air. Bladder: Grossly unremarkable. Reproductive: No adnexal masses. Bones: No acute fracture. Other: n/a IMPRESSION: Possible mild proctitis, new from prior. Normal appendix. No other acute findings identi fied .
[2023-08-10 10:04] LABS: Albumin 3.5 g/dL (3.4-5.0); Albumin/Globulin Ratio 0.9 (1.1-1.8); Anion Gap 7.6 mEq/L (5.0-15.0); Bilirubin Total 0.6 mg/dL (0.2-1.0); Globulin 3.8 g/dL (2.3-3.5); Potassium 3.6 mEq/L (3.5-5.1); Protein, Total 7.3 g/dL (6.4-8.2)
--- NOTE | 2023-08-10 10:28 | EDPHYS ---
Physician Documentation [facility] Name: Treva Miguel Age: 52 yrs Sex: Male : 1970 Arrival Date: 08/10/2023 Time: 09:04 Bed 6 Private MD: ED Physician Amol Malik HPI: 08/09 10:16 This 52 yrs old Male presents to ER via Ambulatory with complaints of gautam Abdominal Pain. 10:16 The patient presents with abdominal pain in the lower abdomen. Onset: The gautam symptoms/episode began/occurred 2 day(s) ago. Historical: - Allergies: 09:11 Codeine; ld1 - PMHx: 09:11 Asthma; Urinary Frequency; ld1 - Immunization history:: Adult Immunizations up to date. - Social history:: Smoking status: Patient denies any tobacco usage or history of. Patient/guardian denies using street drugs. ROS: 10:22 Constitutional: Negative for fever, chills, and weight loss, Eyes: Negative for injury, gautam pain, redness, and discharge, ENT: Negative for injury, pain, and discharge, Neck: Negative for injury, pain, and swelling, Cardiovascular: Negative for chest pain, palpitations, and edema, Respiratory: Negative for shortness of breath, cough, wheezing, and pleuritic chest pain, Back: Negative for injury and pain, : Negative for injury, bleeding, discharge, and swelling, MS/Extremity: Negative for injury and deformity, Skin: Negative for injury, rash, and discoloration, Neuro: Negative for headache, weakness, numbness, tingling, and seizure, Psych: Negative for depression, anxiety, suicide ideation, homicidal ideation, and hallucinations, Allergy/Immunology: Negative for hives, rash, and allergies, Endocrine: Negative for neck swelling, polydipsia, polyuria, polyphagia, and marked weight changes, Hematologic/Lymphatic: Negative for swollen nodes, abnormal bleeding, and unusual bruising, 10:22 Abdomen/GI: Positive for abdominal pain, diarrhea, abdominal distension, Exam: 10:22 Constitutional: This is a well developed, well nourished patient who is awake, alert, gautam and in no acute distress. Head/Face: Normocephalic, atraumatic. Eyes: Pupils equal round and reactive to light, extra-ocular motions intact. Lids and lashes normal. Conjunctiva and sclera are non-icteric and not injected. Cornea within normal limits. Periorbital areas with no swelling, redness, or edema. ENT: Nares patent. No nasal discharge, no septal abnormalities noted. Tympanic membranes are normal and external auditory canals are clear. Oropharynx with no redness, swelling, or masses, exudates, or evidence of obstruction, uvula midline. Mucous membranes moist. Neck: Trachea midline, no thyromegaly or masses palpated, and no cervical lymphadenopathy. Supple, full range of motion without nuchal rigidity, or vertebral point tenderness. No Meningismus. Chest/axilla: Normal chest wall appearance and motion. Nontender with no deformity. No lesions are appreciated. Cardiovascular: Regular rate and rhythm with a normal S1 and S2. No gallops, murmurs, or rubs. Normal PMI, no JVD. No pulse deficits. Respiratory: Lungs have equal breath sounds bilaterally, clear to auscultation and percussion. No rales, rhonchi or wheezes noted. No increased work of breathing, no retractions or nasal flaring. Abdomen/GI: Soft, non-tender, with normal bowel sounds. No distension or tympany. No guarding or rebound. No evidence of tenderness throughout. Back: No spinal tenderness. No costovertebral tenderness. Full range of motion. Male : Normal genitalia with no discharge or lesions. Skin: Warm, dry with normal turgor. Normal color with no rashes, no lesions, and no evidence of cellulitis. MS/ Extremity: Pulses equal, no cyanosis. Neurovascular intact. Full, normal range of motion. Neuro: Awake and alert, GCS 15, oriented to person, place, time, and situation. Cranial nerves II-XII grossly intact. Motor strength 5/5 in all extremities. Sensory grossly intact. Cerebellar exam normal. Normal gait. Psych: Awake, alert, with orientation to person, place and time. Behavior, mood, and affect are within normal limits. Vital Signs: 09:15 Pulse 70; Resp 18; Pulse Ox 99% on R/A; Weight 79.38 kg; Height 5 ft. 7 in. ; Pain 0/10;ld1 11:36 BP 129 / 72; Pulse 74; Resp 18; Pulse Ox 100% on R/A; Pain 6/10; ld1 12:19 BP 127 / 68; Pulse 74; Resp 16; Temp 98.1; Pulse Ox 100% on R/A; iw 09:15 Body Mass Index 27.41 (79.38 kg, 170.18 cm) ld1 09:15 Pain Scale: Adult ld1 11:36 Pain Scale: Adult ld1 MDM: 09:08 Patient medically screened. gautam 09:12 Patient medically screened. gautam 10:22 Differential diagnosis: diverticulitis, gastritis, gastroesophageal reflux disease, GI gautam Bleed, Ureterolithiasis, urinary tract infection. Data reviewed: vital signs, nurses notes, lab test result(s), radiologic studies, CT scan. Consideration of Admission/Observation Escalation of care including admission/observation considered. I considered the following discharge prescriptions or medication management in the emergency department Medications were administered in the Emergency Department. See MAR. Independent interpretation of the following test(s) in the Emergency Department CT Scan: My interpretation is proctitis. Test considered but Not performed: Ultrasound no abd usg. Care significantly affected by the following chronic conditions: urinary frequency, asthma. 08/09 09:11 Order name: CBC with Diff; Complete Time: 10:[address] [facility] 08/09 09:11 Order name: CMP; Complete Time: 10:[address] [facility] 08/09 09:11 Order name: Lipase; Complete Time: 10:[address] [facility] 08/09 09:11 Order name: Urinalysis w/ reflexes; Complete Time: 10:[address] [facility] 08/09 09:11 Order name: CT Abd/Pelvis - IV Contrast Only; Complete Time: 10:[address] [facility] 08/09 09:11 Order name: IV Saline Lock; Complete Time: 09:[address] [facility] 08/09 09:11 Order name: Labs collected and sent; Complete Time: 09:[address] [facility] Administered Medications: 09:15 Drug: NS 0.9% IV 1000 ml IV at 1 bolus Per protocol; 1000 mL bolus Route: IV; Rate: 1 rs5 bolus; Site: right antecubital; 11:00 Follow up: IV Status: Completed infusion iw 09:15 Drug: Famotidine IVP 20 mg IVP once; dilute with 10 mL 0.9% NaCl; give over 2 minutes rs5 Route: IVP; Site: right antecubital; 09:52 Not Given (pt is currently not nauseas ): ondansetron 4 mg IVP once; over 2 minutes rs5 09:52 Not Given (Pt not experiencing painn): morphineor iv 4 mg IVP once over 4 mins rs5 10:50 Drug: metroNIDAZOLE IVPB 500 mg 100 ml IVPB at 200 ml/hr once over 30 mins Volume: 100 rs5 ml; Route: IVPB; Rate: 200 ml/hr; Infused Over: 30 mins; Site: right antecubital; 12:20 Follow up: IV Status: Completed infusion iw Disposition Summary: 08/10/23 10:27 Discharge Ordered Notes: Location: Home [facility] Problem: new [facility] Symptoms: have improved [facility] Condition: Stable [facility] Diagnosis - Abdominal tenderness gautam - Diarrhea, unspecified [facility] - Left sided colitis - proctitis [facility] Followup: gautam - With: Private Physician - When: 2 - 3 days - Reason: Recheck today's complaints, Continuance of care, Re-evaluation by your physician Followup: gautam - With: Alex Phillip MD - When: 2 - 3 days - Reason: Recheck today's complaints, Re-evaluation by your physician Discharge Instructions: - Discharge Summary Sheet [facility] - Abdominal Pain, Adult gautam - Diarrhea, Adult [facility] - How to Take a Sitz Bath [facility] - Abdominal Pain, Adult, [id number] gautam - Diarrhea, Adult, [id number] gautam - Proctitis [facility] Forms: - Medication Reconciliation Form [facility] - Thank You Letter [facility] - Antibiotic Education [facility] - Prescription Opioid Use [facility] - Patient Portal Instructions [facility] - Leadership Thank You Letter [facility] Prescriptions: - Flagyl 500 mg Oral Tablet - take 1 tablet ORAL route every 12 hours for 7 days; 14 tablet; Refills: 0, [facility] Product Selection Permitted - Zofran 4 mg Oral Tablet - take 1 tablet ORAL route every 12 hours As needed; 20 tablet; Refills: 0, [facility] Product Selection Permitted - dicyclomine 20 mg Oral tablet - take 1 tablet ORAL route 4 times per day; 28 tablet; Refills: 0, Product [facility] Selection Permitted Signatures: Dispatcher [employer] Amol Sánchez MD MD cha Sims, Lauren, RN RN ld1 Donaldo Hanson RN RN rs5 Julissa Nino RN iw
--- NOTE | 2023-08-10 10:28 | ER ---
Nurse's Notes [facility] Name: Treva Miguel Age: 52 yrs Sex: Male : 1970 Arrival Date: 08/10/2023 Time: 09:04 Bed 6 Private MD: Diagnosis: Abdominal tenderness;Diarrhea, unspecified;Left sided colitis-proctitis Presentation: 08/09 09:15 Chief complaint: Patient states: Diarrhea, constipation, fatigue X 1 day. Coronavirus ld1 screen: At this time, the client does not indicate any symptoms associated with coronavirus-19. Ebola Screen: No symptoms or risks identified at this time. Initial Sepsis Screen: Does the patient meet any 2 criteria? No. Patient's initial sepsis screen is negative. Does the patient have a suspected source of infection? No. Patient's initial sepsis screen is negative. Risk Assessment: Do you want to hurt yourself or someone else? Patient reports no desire to harm self or others. Onset of symptoms was August 10, 2023 at 09:16. 09:15 Method Of Arrival: Ambulatory ld1 09:15 Acuity: JAYSON 3 ld1 Triage Assessment: 09:15 General: Appears in no apparent distress. comfortable, Behavior is calm, cooperative, ld1 appropriate for age. Pain: Denies pain. EENT: No signs and/or symptoms were reported regarding the EENT system. Neuro: Level of Consciousness is awake, alert, obeys commands, Oriented to person, place, time, situation. Cardiovascular: Capillary refill < 3 seconds Patient's skin is warm and dry. Respiratory: Airway is patent Respiratory effort is even, unlabored. GI: Abdomen is flat, non-distended, Reports constipation, diarrhea. : No signs and/or symptoms were reported regarding the genitourinary system. Derm: No signs and/or symptoms reported regarding the dermatologic system. Musculoskeletal: No signs and/or symptoms reported regarding the musculoskeletal system. Historical: - Allergies: 09:11 Codeine; ld1 - PMHx: 09:11 Asthma; Urinary Frequency; ld1 - Immunization history:: Adult Immunizations up to date. - Social history:: Smoking status: Patient denies any tobacco usage or history of. Patient/guardian denies using street drugs. Screenin:36 [facility] ED Fall Risk Assessment (Adult) History of falling in the last 3 months, ld1 including since admission No falls in past 3 months (0 pts). Abuse screen: Denies threats or abuse. Denies injuries from another. Nutritional screening: No deficits noted. Tuberculosis screening: No symptoms or risk factors identified. Assessment: 09:20 Reassessment: Patient and/or family updated on plan of care and expected duration. Pain rs5 level reassessed. Patient is alert, oriented x 3, equal unlabored respirations, skin warm/dry/pink. 10:15 Reassessment: Patient and/or family updated on plan of care and expected duration. Pain rs5 level reassessed. Patient is alert, oriented x 3, equal unlabored respirations, skin warm/dry/pink. 11:36 General: Appears in no apparent distress. comfortable, Behavior is calm, cooperative, ld1 appropriate for age. Pain: Complains of pain in abdomen Pain does not radiate. Pain currently is 8 out of 10 on a pain scale. Quality of pain is described as throbbing, Pain began suddenly, Is continuous. Neuro: Level of Consciousness is awake, alert, obeys commands, Oriented to person, place, time, situation. Cardiovascular: Capillary refill < 3 seconds Patient's skin is warm and dry. Respiratory: Airway is patent Respiratory effort is even, unlabored. GI: Abdomen is flat, non-distended, Bowel sounds present X 4 quads. Abd is soft Abdomen is tender to palpation X 4 quads. : No signs and/or symptoms were reported regarding the genitourinary system. EENT: No signs and/or symptoms were reported regarding the EENT system. Derm: No signs and/or symptoms reported regarding the dermatologic system. 11:49 Reassessment: Pt unable to discharge. Antibiotic still infusing. ld1 Vital Signs: 09:15 Pulse 70; Resp 18; Pulse Ox 99% on R/A; Weight 79.38 kg; Height 5 ft. 7 in. ; Pain 0/10;ld1 11:36 BP 129 / 72; Pulse 74; Resp 18; Pulse Ox 100% on R/A; Pain 6/10; ld1 12:19 BP 127 / 68; Pulse 74; Resp 16; Temp 98.1; Pulse Ox 100% on R/A; iw 09:15 Body Mass Index 27.41 (79.38 kg, 170.18 cm) ld1 09:15 Pain Scale: Adult ld1 11:36 Pain Scale: Adult ld1 ED Course: 09:06 Patient arrived in ED. mg5 09:09 Amol Malik MD is Attending Physician. gautam 09:11 Radha Ortega, CASSANDRA is Primary Nurse. ld1 09:15 Arm band placed on right wrist. ld1 09:16 Triage completed. ld1 09:29 Inserted saline lock: 20 gauge in right antecubital area, using aseptic technique. ld1 Blood collected. 09:30 Initial lab(s) drawn, by me, sent to lab. aw1 09:50 CT Abd/Pelvis - IV Contrast Only In Process Unspecified. EDMS 10:27 Alex Phillip MD is Referral Physician. gautam 11:36 Patient has correct armband on for positive identification. Placed in gown. Bed in low ld1 position. Call light in reach. Side rails up X2. cardiac monitor technician on. Pulse ox on. NIBP on. Door closed. Noise minimized. Warm blanket given. 11:36 No provider procedures requiring assistance completed. ld1 12:19 Provided Education on: prescriptions. iw 12:19 IV discontinued, intact, bleeding controlled, No redness/swelling at site. Pressure iw dressing applied. Administered Medications: 09:15 Drug: NS 0.9% IV 1000 ml IV at 1 bolus Per protocol; 1000 mL bolus Route: IV; Rate: 1 rs5 bolus; Site: right antecubital; 11:00 Follow up: IV Status: Completed infusion iw 09:15 Drug: Famotidine IVP 20 mg IVP once; dilute with 10 mL 0.9% NaCl; give over 2 minutes rs5 Route: IVP; Site: right antecubital; 09:52 Not Given (pt is currently not nauseas ): ondansetron 4 mg IVP once; over 2 minutes rs5 09:52 Not Given (Pt not experiencing painn): morphineor iv 4 mg IVP once over 4 mins rs5 10:50 Drug: metroNIDAZOLE IVPB 500 mg 100 ml IVPB at 200 ml/hr once over 30 mins Volume: 100 rs5 ml; Route: IVPB; Rate: 200 ml/hr; Infused Over: 30 mins; Site: right antecubital; 12:20 Follow up: IV Status: Completed infusion iw Medication: 11:36 VIS not applicable for this client. ld1 Outcome: 10:27 Discharge ordered by . gautam 12:19 Discharged to home ambulatory, iw 12:19 Condition: good 12:19 Discharge instructions given to patient, Instructed on discharge instructions, follow up and referral plans. medication usage, Demonstrated understanding of instructions, follow-up care, medications, Prescriptions given X 3, 12:20 Patient left the ED. iw Signatures: Dispatcher [employer] EDIN Amol Malik MD MD cha Williams, Irene, RN RN iw Radha Ortega RN RN ld1 Donaldo Hanson RN RN rs5 Neema Jeffery awMikayla Palencia mg5
[2023-08-10 12:52] VITALS: BP 127/68; TEMP 98.1; O2SAT 100
== END ==
LOC: ER 09:04
DX: K51.50 Left sided colitis without complications (principal); K62.89 Other specified diseases of anus and rectum; R19.7 Diarrhea, unspecified; Z88.5 Allergy status to narcotic agent
CPT/HCPCS: 96365; 96361; 85025; 81001; 36415; 83690; 80053; 74177; 96375; 99285; Q9967; J7030; J2405